=== PATIENT | female | born 1980 | race Caucasian/White ===

== ENCOUNTER 2016-09-14 07:19 | Outpatient (CLI) ==
[2016-09-14 07:57] LABS: BASOPHILS % (AUTO) 0.2 % (0.0-3.0); EOSINOPHILS % (AUTO) 0.1 % (0.0-7.0); HEMATOCRIT 37.3 % (37.0-47.0); IMMATURE GRANULOCYTE % (AUTO) 0.3 % (0.0-5.0); LYMPHOCYTES # (AUTO) 1.5 K/uL (0.60-3.4); LYMPHOCYTES % (AUTO) 13.1 (10.0-50.0); MEAN CORPUSCULAR HEMOGLOBIN 31.9 pg (27.0-31.0); MEAN CORPUSCULAR HGB CONC 34.9 (31.8-35.4); MEAN CORPUSCULAR VOLUME 91.4 fl (81.0-99.0); MONOCYTES # (AUTO) 0.8 K/uL (0.4-2.0); MONOCYTES % (AUTO) 7.2 (0-10); NEUTROPHILS # (AUTO) 9.3 K/ul (2.0-6.9); NEUTROPHILS % (AUTO) 79.1; PLATELET COUNT 313 10^3/uL (140-440); RED BLOOD COUNT 4.08 10^6/ul (4.20-5.40); WHITE BLOOD COUNT 11.72 K/ul (4.6-10.2)
--- NOTE | 2016-09-14 08:07 | DI ---
EXAM: CERVICAL SPINE, 3 VIEWS HISTORY: Neck pain. FINDINGS: Cervical spine open mouth, frontal and lateral views. Frontal view reveals no scoliosis . The lateral masses of C1-C2 are normally aligned. The odontoid process is grossly unremarkable. Lateral views demonstrate no spondylolisthesis, disc space abnormality or loss of vertebral body h eight. Facet joints are normally covered. No fractures are seen. Prevertebral soft tissues are wi thin normal limits. IMPRESSION: Unremarkable study.
--- NOTE | 2016-09-14 08:09 | DI ---
EXAM: RIGHT SHOULDER HISTORY: Right shoulder pain FINDINGS / IMPRESSION: Right shoulder three-view. General bone density is normal. There is no acute fracture or joint dislocation. Glenohumeral and acromioclavicular joints are normal. There is a corticated 0.5 cm bone density above the greater tuberosity of the proximal humerus which may represent a focus of dystrophic calcification. Soft tissues are otherwise unremarkable. If concern is persistent, consider correlation with MRI.
--- NOTE | 2016-09-14 08:10 | DI ---
EXAM: THORACIC SPINE HISTORY: Lower back pain FINDINGS: Thoracic spine three-view. Frontal view reveals no definite scoliosis. Bone density a ppears normal. Lateral views demonstrate normal vertebral body height, disc spaces and alignment. No acute fracture. IMPRESSION: Unremarkable study.
--- NOTE | 2016-09-14 08:11 | DI ---
EXAM: Lumbar spine three views HISTORY: Low back pain FINDINGS: Normal bone density. There is subtle scoliosis convex to the left centered at the upper lumbar level estimated at about 3-4 degrees. No fracture or spondylolisthesis. Normal vertebral isabel dy height. No notable degenerative disc or facet disease. Sacroiliac joints are within normal limi ts. IMPRESSION: Subtle scoliosis. Otherwise within normal limits.
[2016-09-14 08:42] LABS: ALBUMIN 3.8 g/dL (3.4-5.0); ALBUMIN/GLOBULIN RATIO 1.15; ANION GAP 13.9; BILIRUBIN,TOTAL 0.7 mg/dL (0.00-1.20); BUN/CREATININE RATIO 15.71; CALCIUM 9.1 mg/dL (8.2-10.2); CHOL/HDL RATIO 3.2 (4.5-5.5); CREATININE 0.7 mg/dL (0.60-1.30); POTASSIUM 3.9 mmol/L (3.5-5.10); TOTAL PROTEIN 7.1 g/dL (6.4-8.2)
== END 2016-09-14 07:20 | disposition home or self-care (01) ==
LOC: RAD 07:19
PROVIDERS: ATTEND Nurse Practitioner Family
DX: M54.9 Dorsalgia, unspecified (principal)
CPT/HCPCS: 36415; 80053; 80061; 82306; 84439; 84443; 85025; 86430

== ENCOUNTER 2016-09-17 10:59 | Outpatient (CLI) ==
[2016-09-17 15:40] LABS: ERYTHROCYTE SEDIMENTATION RATE 3 mm/hr (0-20); ESR INTERNAL QC INTERNAL QC VALID
[2016-09-18 08:53] LABS: C-REACTIVE PROTEIN < 0.3 mg/L (0.0-4.9)
== END 2016-09-17 11:00 | disposition home or self-care (01) ==
LOC: LAB 10:59
PROVIDERS: ATTEND Nurse Practitioner Family
DX: M54.5 Low back pain (principal); M54.6 Pain in thoracic spine; M54.2 Cervicalgia; D72.829 Elevated white blood cell count, unspecified; M54.12 Radiculopathy, cervical region; M54.16 Radiculopathy, lumbar region; R52 Pain, unspecified
CPT/HCPCS: 36415; 85651; 86140; 86664

== ENCOUNTER 2016-09-18 09:23 | Outpatient (CLI) ==
--- NOTE | 2016-09-18 10:24 | MAMMO ---
EXAM: Bilateral digital screening mammogram History: Screening Comparison: None available. Findings: MLO and CC views of bilateral breasts demonstrate heterogeneously dense breast parenchyma which can obscure small lesions. Benign calcifications seen within the right breast. There are no dominant masses, no suspicious microcalcifications and no architectural distortions Impression: Benign mammogram. Recommend followup routine screening mammography in 1 year. BIRADS 2
== END 2016-09-18 09:24 | disposition home or self-care (01) ==
LOC: RAD 09:23
PROVIDERS: ATTEND Nurse Practitioner Family
DX: Z12.31 Encounter for screening mammogram for malignant neoplasm of breast (principal); Z80.3 Family history of malignant neoplasm of breast

== ENCOUNTER 2016-09-20 10:04 | Outpatient (CLI) ==
--- NOTE | 2016-09-20 20:11 | MRI ---
EXAM: Cervical spine MRI without contrast. HISTORY: Cervical radiculopathy. COMPARISON: Cervical spine radiographs 09/14/2016. TECHNIQUE: Multiplanar, multisequence MR images were acquired of the cervical spine without contras t. FINDINGS: The right cerebellar tonsil is slightly larger than the left and both extend to the crani ocervical junction without ectopia. The cervical cord has normal signal intensity. There is minor mid cervical dextroscoliosis and straightening of the usual cervical lordosis. The cervical vertebr a are normal in height and intrinsic bone marrow signal. There are no paravertebral masses. A mode rate mucous retention cyst is present in the left maxillary sinus and a small mucous retention cyst in the right. Visualized lung apices are clear. C2-3: The intervertebral disc is normal. C3-4: There is a mild disc bulge and mild right uncovertebral hypertrophy with minor right foramina l stenosis. C4-5: There is a minor left posterior disc bulge. C5-6: The intervertebral disc is normal. C6-7: There is a minimal disc bulge. C7-T1: The intervertebral disc is normal. IMPRESSION: 1. Minor cervical degenerative spondylosis without spinal stenosis. 2. Mild disc bulge C3-4. 3. No cervical disc herniations or significant foraminal stenosis.
== END 2016-09-20 10:05 | disposition home or self-care (01) ==
LOC: RAD 10:04
PROVIDERS: ATTEND Nurse Practitioner Family
DX: M54.12 Radiculopathy, cervical region (principal)

== ENCOUNTER 2016-09-23 10:01 | Outpatient (CLI) ==
--- NOTE | 2016-09-23 14:09 | MRI ---
EXAM: MRI thoracic spine without IV contrast. DATE: 23 September 2016. HISTORY: Thoracic spine pain. TECHNIQUE: Sagittal and axial T2W and T1W sequences of the thoracic spine along with sagittal IR an d coronal T2W sequences were obtained using 1.2 Donna magnet. No IV contrast. COMPARISON: T-spine series 14 September 2016. MRI C-spine 20 September 2016. FINDINGS: No new cervical disc protrusions/cord compression, syrinx or myelomalacia is evident comp ared to 20 September 2016. For complete MRI C-spine details please see 20 September 2016 report. There are 12 thoracic vertebra with paired ribs. Minimal (2 degrees) rightward curvature of the tho racic spine may be positioning artifact. No acute T-spine fracture, subluxation, osseous malignancy , or jumped facet is evident. Thoracic vertebra are normal in height. A T2W/T1W/IR bright, 6 mm fo cus in the right posterolateral T9 vertebral body is likely an atypical hemangioma. Bone marrow sig nal is normal. Disc desiccation without significant disc space narrowing is evident at T4-5 and T6- 7. Thoracic intervertebral discs are normal in height. Conus medullaris terminates at T12-L1. No c ord edema, syrinx, myelomalacia, or neoplasm is identified. Anterior midline thyroid gland reveals a 4.6 x 2.7 mm T2W bright, T1W slightly dark focus. Thyroid gland is otherwise unremarkable. Trachea, mainstem bronchi, thoracic esophagus, and thoracic aorta are normal. No mediastinal lymphadenopathy, hilar lymphadenopathy, pneumonia, lung mass, or pleural effusion is detected. No rib fracture, rib lesion, paraspinal mass, or chest wall mass is identifi ed. Visible portion of each shoulder is unremarkable. The visible portions of the liver, gallbladde r, spleen, adrenal glands and right kidney reveal no distinct abnormality. A T2W bright, T1W interme diate signal, 3 mm focus in the anterior cortex upper pole left kidney is likely a benign cyst. Segmental analysis: T1-2: Normal. T2-3: Normal. T3-4: Normal. T4-5: Midline disc protrusion ( 1 x 3 mm) touches the cord anteriorly. Canal is 11 mm AP. Each fo ramen is patent. T5-6: Normal. T6-7: Midline disc protrusion (2.6 mm AP x 4.7 mm transverse) touches the cord anteriorly. Small a mount of dorsal epidural fat is noted. Thecal sac is 8.2 mm AP. Each foramen is patent. T7-8: Normal. T8-9: Normal. T9-10: Normal. T10-11: Normal. T11-12: Normal. T12-L1: Normal. IMPRESSIONS: 1. Thoracic spine minor DDD. Mild cord flattening and mild central stenosis at T6-7. No syrinx or myelomalacia. 2. No thoracic spine foraminal stenosis. 3. Benign atypical hemangioma in the T9 body. 4. Left kidney tiny cortical cyst - likely benign. 5. Small thyroid isthmus nodule (4.6 x 2.7 mm) - statistically likely to be a cyst.
== END 2016-09-23 10:02 | disposition home or self-care (01) ==
LOC: RAD 10:01
PROVIDERS: ATTEND Nurse Practitioner Family
DX: M54.6 Pain in thoracic spine (principal)

== ENCOUNTER 2016-09-24 10:00 | Outpatient (CLI) ==
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
== END 2016-09-24 10:01 | disposition home or self-care (01) ==
LOC: RAD 10:00
PROVIDERS: ATTEND Nurse Practitioner Family
DX: M54.5 Low back pain (principal)

== ENCOUNTER 2016-09-26 08:05 | Outpatient (CLI) ==
--- NOTE | 2016-09-26 08:46 | US ---
EXAM: Renal so HISTORY: Cyst of kidney, acquired COMPARISON: MRI spine 09/24/2016 TECHNIQUE: Renal ultrasound was FINDINGS: Right kidney measures 4.0 x 4.9 x 12.2 cm. Left kidney measures 4.7 x 4.1 x 10.0 cm. Re nal cortical echogenicity is normal. No hydronephrosis or renal calculus large enough to cause acou stic shadowing. No renal mass identified. The small left renal cyst demonstrated on MRI not visual ized sonographically. The bladder is only minimally distended and poorly evaluated, grossly unremar kable IMPRESSION: Sonographically normal kidneys. The small left renal cyst demonstrated on MRI is not v isualized sonographically.
== END 2016-09-26 08:06 | disposition home or self-care (01) ==
LOC: RAD 08:05
PROVIDERS: ATTEND Nurse Practitioner Family
DX: N28.1 Cyst of kidney, acquired (principal)
CPT/HCPCS: 76770

== ENCOUNTER 2017-01-31 11:43 | Outpatient (CLI) ==
[2017-01-31 13:06] LABS: BASOPHILS # (AUTO) 0.1 K/uL (0-0.2); BASOPHILS % (AUTO) 0.7 % (0.0-3.0); EOSINOPHILS # (AUTO) 0.2 K/ul (0.0-0.7); EOSINOPHILS % (AUTO) 2.8 % (0.0-7.0); HEMATOCRIT 40.2 % (37.0-47.0); HEMOGLOBIN 13.5 g/dl (12.0-16.0); IMMATURE GRANULOCYTE % (AUTO) 0.3 % (0.0-5.0); LYMPHOCYTES % (AUTO) 27.7 (10.0-50.0); MEAN CORPUSCULAR HEMOGLOBIN 31.4 pg (27.0-31.0); MEAN CORPUSCULAR HGB CONC 33.6 (31.8-35.4); MEAN CORPUSCULAR VOLUME 93.5 fl (81.0-99.0); MONOCYTES # (AUTO) 0.7 K/uL (0.4-2.0); NEUTROPHILS # (AUTO) 4.1 K/ul (2.0-6.9); NEUTROPHILS % (AUTO) 58.5; PLATELET COUNT 282 10^3/uL (140-440); WHITE BLOOD COUNT 7.08 K/ul (4.6-10.2)
[2017-01-31 13:26] LABS: ALBUMIN 3.9 g/dL (3.4-5.0); ALBUMIN/GLOBULIN RATIO 1.26; BILIRUBIN,TOTAL 0.15 mg/dL (0.00-1.20); BUN/CREATININE RATIO 22.72; CALCIUM 9.5 mg/dL (8.2-10.2); CREATININE 0.66 mg/dL (0.60-1.30)
== END 2017-01-31 11:44 | disposition home or self-care (01) ==
LOC: LAB 11:43
PROVIDERS: ATTEND Nurse Practitioner Family
DX: B27.90 Infectious mononucleosis, unspecified without complication (principal); M50.30 Other cervical disc degeneration, unspecified cervical region; M51.36 Other intervertebral disc degeneration, lumbar region
CPT/HCPCS: 36415; 80053; 80061; 85025

== ENCOUNTER 2017-10-14 22:15 | Emergency (ER) ==
[2017-10-14 22:25] VITALS: BP 146/100; TEMP 98.8
[2017-10-14] MEDS ORDERED: ZOFRAN 4 MG/2 ML IM STA (23:13)
[2017-10-14] MEDS ORDERED: DEMEROL 25 MG/ML VIAL IM STA (23:13)
--- NOTE | 2017-10-14 23:21 | ED.PDOC ---
General ED Provider: Dr. SHADY FLOR Chief Complaint: Back Pain Stated Complaint: Sudden onset of the left flank abdomina pain , sharp type,. nausea no vomiting Time Seen by Physician: 23:20 Mode of Arrival: Walk-In Information Source: Patient Primary Care Provider: SHADY FLOR-[facility] Nursing and Triage Documentation Reviewed and Agree: Yes Reviewed sepsis parameters & appropriate labs ordered?: No System Inflammatory Response Syndrome: Not Applicable Sepsis Protocol: For patient's 13 years and over: Temp is 96.8 and below OR 101 and greater Pulse >90 BPM Resp >20/minute Acutely Altered Mental Status Are patient's symptoms suggestive of a new infection, such as: -Pneumonia -Skin, Soft Tissue -Endocarditis -UTI -Bone, Joint Infection -Implantable Device -Acute Abdominal Infection -Wound Infection -Meningitis -Blood Stream Catheter Infection -Unknown GI Complaint Exam - Abdominal Pain Complaint/Exam Onset: Sudden Symptoms Are: Still present Timing: Constant Initial Severity: Severe Current Severity: Severe Location of Pain: LLQ, Suprapubic Radiates To: Reports: Flank Character: Reports: Sharp Aggravating: Reports: Movement Alleviating: Reports: None Associated Signs and Symptoms: Reports: Nausea. Denies: Diaphoresis, Fever, Cough, Chest pain, Dizziness, Back pain, Constipation, Blood in stool, Dysuria, Urinary frequency, Decreased urine output, Decreased appetite, Vaginal bleeding , Vaginal discharge, Vomiting, Diarrhea, Sore throat, Decreased activity AAA Risk Factors: Reports: None Cardiac Risk Factors: Reports: None Ectopic Risk Factors: Reports: None Ovarian Torsion Risk Factors: Reports: None Surgical Obstruction Risk Factors: Reports: None Related Surgical History: Reports: None Patient Rh Status: Unknown Abdominal Findings: Present: CVA Tenderness. Absent: Pulsatile mass, Abdominal distention, Unequal femoral pulses, Rebound tenderness Differential Diagnoses: Renal Colic, Ureteral Stone, UTI Review of Systems - Review Of Systems Constitutional: Reports: Malaise, Weakness Eyes: Reports: No symptoms Ears, Nose, Mouth, Throat: Reports: No symptoms Respiratory: Reports: No symptoms Cardiac: Reports: No symptoms GI: Reports: Abdominal pain, Nausea : Reports: Burning, Dysuria Musculoskeletal: Reports: No symptoms Skin: Reports: No symptoms Neurological: Reports: No symptoms Endocrine: Reports: No symptoms Hematologic/Lymphatic: Reports: No symptoms All Other Systems: Reviewed and Negative Past Medical History - Past Medical History Previously Healthy: Yes Endocrine: Reports: None Cardiovascular: Reports: None Respiratory: Reports: None Hematological: Reports: None Gastrointestinal: Reports: None Genitourinary: Reports: None Neuro/Psych: Reports: None Musculoskeletal: Reports: None Cancer: Reports: None Last Menstrual Period: UNKNOWN - Surgical History General Surgical History: Reports: Hysterectomy - Family History Family History: Reports: None - Social History Smoking Status: Former smoker Hx Substance Use: No Alcohol Screening: None - Immunizations Tetanus Shot up to Date: Yes Physical Exam - Physical Exam Appearance: Ill-appearing, Thin Pain Distress: Moderate Eyes: CALI, EOMI, Conjunctiva clear ENT: Ears normal, Nose normal, Oropharynx normal Respiratory: Airway patent, Breath sounds clear, Breath sounds equal, Respirations nonlabored Cardiovascular: RRR, Pulses normal, No rub, No murmur GI/: Tender Musculoskeletal: Normal strength, ROM intact, No edema, No calf tenderness Skin: Warm, Dry, Normal color Neurological: Sensation intact, Motor intact, Reflexes intact, Cranial nerves intact, Alert, Oriented Psychiatric: Affect appropriate, Mood appropriate Interpretation - Radiology Interpretation Radiology Interpretation By: Radiologist Radiology Results: Positive (2 mm stone,) Exam Interpreted: CT Scan Critical Care Note - Critical Care Note Total Time (mins): 30 Course - Course Hematology/Chemistry: 10/15/17 00:00 Orders, Labs, Meds: Lab Review 10/14/17 10/14/17 10/15/17 22:35 23:30 00:00 WBC 17.80 H RBC 3.88 L Hgb 12.3 Hct 35.6 L MCV 91.8 MCH 31.7 H MCHC 34.6 RDW Coeff of Kim 12.2 Plt Count 329 Immature Gran % (Auto) 0.4 Neut % (Auto) 82.4 Lymph % (Auto) 9.5 L Ogle % (Auto) 7.2 Eos % (Auto) 0.2 Baso % (Auto) 0.3 Immature Gran # (Auto) 0.1 Neut # (Auto) 14.7 H Lymph # (Auto) 1.7 Ogle # (Auto) 1.3 Eos # (Auto) 0.0 Baso # (Auto) 0.1 Amylase 23 L Lipase 25 Urine Color Dark Urine Clarity Cloudy Urine pH 5.5 Ur Specific [place] >=1.030 Urine Protein 2+ Urine Glucose (UA) Negative Urine Ketones Trace Urine Blood 3+ Urine Nitrite Negative Urine Bilirubin Negative Urine Urobilinogen 0.2 Ur Leukocyte Esterase Negative Urine Microscopic RBC 50-100 Ur Squamous Epith Cells 0-2 Hyaline Casts 0-2 Orders Category Date Time Status AMYLASE Stat LAB 10/14/17 23:30 Completed CBC W/ AUTO DIFF Stat LAB 10/15/17 00:00 Completed CMP [COMPREHENSIVE METABOLIC PANEL] Stat LAB 10/15/17 00:00 Received LIPASE Stat LAB 10/14/17 23:30 Completed UA [URINALYSIS C & S IF INDICATED] Stat LAB 10/14/17 22:35 Completed Ketorolac Tromethamine [Toradol] MEDS 10/15/17 00:06 Discontinued 60 mg IM ONCE STA Meperidine HCl/Pf [Demerol 25 mg/ml Vial] MEDS 10/14/17 23:13 Discontinued 25 mg IM ONCE STA Ondansetron HCl/Pf [Zofran 4 mg/2 ml] MEDS 10/14/17 23:13 Discontinued 4 mg IM ONCE STA CT ABDOMEN/PELVIS WO CONTRAST Stat RADS 10/14/17 23:13 Completed Medications Discontinued Medications Generic Name Dose Route Start Last Admin Trade Name Essence PRN Reason Stop Dose Admin Ketorolac Tromethamine 60 mg 10/15/17 00:06 10/15/17 00:15 Toradol IM 10/15/17 00:07 60 mg ONCE STA Administration Meperidine HCl 25 mg 10/14/17 23:13 10/14/17 23:21 Demerol 25 Mg/Ml Vial IM 10/14/17 23:14 25 mg ONCE STA Administration Ondansetron HCl 4 mg 10/14/17 23:13 10/14/17 23:20 Zofran 4 Mg/2 Ml IM 10/14/17 23:14 4 mg ONCE STA Administration Vital Signs: Temp Pulse Resp BP Pulse Ox 10/14/17 22:17 98.8 F 93 H 24 146/100 H 98 Departure - Departure Time of Disposition: 00:20 Disposition: HOME SELF-CARE Discharge Problem: Renal colic on left side Instructions: Renal Colic (ED) Condition: Stable Pt referred to PMD for follow-up: Yes IPMP verified?: No Additional Instructions: INCREASE HYDRATION F/U WITH [facility] IN 2-3 DAYS Prescriptions: Hydrocodone Bit/Acetaminophen [[place] 7.5-325] 1 each PO Q8H #10 tablet Tamsulosin HCl [Flomax] 0.4 mg PO DAILY #10 cap.er.24h Allergies/Adverse Reactions: Allergies No Known Allergies Allergy (Verified 10/14/17 22:26) Home Medications: Ambulatory Orders Diphenhydramine HCl [Benadryl] 50 mg PO BEDTIME 10/14/17 Hydrocodone Bit/Acetaminophen [[place] 7.5-325] 1 each PO Q8H #10 tablet 10/15/17 Tamsulosin HCl [Flomax] 0.4 mg PO DAILY #10 cap.er.24h 10/15/17 Disposition Discussed With: Patient, Family
[2017-10-15] MEDS ORDERED: TORADOL IM STA (00:06)
--- NOTE | 2017-10-15 00:15 | CT ---
EXAM: CT scan abdomen pelvis without contrast HISTORY: Left flank pain COMPARISON: None. FINDINGS: Contiguous axial images obtained through the abdomen pelvis without contrast utilizing 3-m m collimation. Sagittal and coronal reconstructions were imaged and reviewed.. The visualized lung bases are clear. Gallbladder is fluid filled without cholelithiasis. The liver, pancreas, spleen an d adrenal glands have normal unenhanced CT appearance. The the abdominal aorta is normal in course a nd caliber. The right kidney is morphologically normal. Several punctate nonobstructive calculi are seen within the left kidney. There is left-sided hydronephrosis and hydroureter secondary to a 2 mm calculus within the proximal left ureter. There is no evidence of free fluid.. Bone windows reveal s no evidence of lytic or blastic lesions. IMPRESSION: Left-sided hydronephrosis and hydroureter secondary to a 2 mm calculus within the proximal ureter. T here is nonobstructive left-sided nephrolithiasis. Small umbilical hernia containing only fat.
[2017-10-15] MEDS ORDERED: FLOMAX PO STA (00:18)
== END 2017-10-15 00:46 | disposition home or self-care (01) ==
LOC: ED 22:15
DX: N23 Unspecified renal colic (principal)
CPT/HCPCS: 36415; 80053; 81001; 82150; 83690; 85025; 96372; 99283

== ENCOUNTER 2017-10-22 16:42 | Outpatient (CLI) | END 2017-10-22 16:43 | disposition home or self-care (01) | LOC: LAB 16:42 | PROVIDERS: ATTEND Nurse Practitioner Family | DX: N20.0 Calculus of kidney (principal); N30.01 Acute cystitis with hematuria; M51.24 Other intervertebral disc displacement, thoracic region | CPT/HCPCS: 36415; 80048; 81001; 85025; 87086 ==

== ENCOUNTER 2018-03-19 11:27 | Outpatient (CLI) | END 2018-03-19 11:28 | disposition home or self-care (01) | LOC: FCC-LAB 11:27 | PROVIDERS: ATTEND Family Medicine | DX: R25.2 Cramp and spasm (principal); R79.89 Other specified abnormal findings of blood chemistry; M54.6 Pain in thoracic spine | CPT/HCPCS: 36415; 80053; 82306; 83735; 85025 ==

== ENCOUNTER 2018-05-16 16:28 | Emergency (ER) ==
[2018-05-16 16:32] VITALS: BP 118/82; TEMP 97.7; BMI 25.0
[2018-05-16] MEDS ORDERED: LIDOCAINE HCL 1% SDV ONE (18:23)
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
[2018-05-16] MEDS ORDERED: BOOSTRIX IM ONE (18:55)
[2018-05-16] MEDS ORDERED: LIDOCAINE HCL 1% SDV SUBCUT STA (18:55)
== END 2018-05-16 19:18 | disposition home or self-care (01) ==
LOC: ED 16:28
DX: S11.81XA Laceration without foreign body of other specified part of neck, initial encounter (principal); X99.1XXA Assault by knife, initial encounter
CPT/HCPCS: 90471; 90715; 99283

== ENCOUNTER 2018-08-06 14:10 | Outpatient (CLI) | END 2018-08-06 14:11 | disposition home or self-care (01) | LOC: RHC-LAB 14:10 | PROVIDERS: ATTEND Family Medicine | DX: R79.89 Other specified abnormal findings of blood chemistry (principal) | CPT/HCPCS: 36415; 82306 ==

== ENCOUNTER 2019-02-05 11:06 | Outpatient (CLI) ==
--- NOTE | 2019-02-05 12:04 | DI ---
EXAM: Right shoulder three views HISTORY: Shoulder pain. FINDINGS: Compared to 09/14/2016. Redemonstration of an osseous density situated superior to the gr eater tubercle of the proximal humerus measuring about 4 x 6 mm. This appears slightly larger than p revious and may represent regional dystrophic calcification. The AC and glenohumeral joints proper w ithin normal limits. There is no acute fracture or dislocation. IMPRESSION: 1. Persistent calcific density above the greater tubercle of the humerus slightly enlarged since seymour or study of 09/14/2016. This could represent dystrophic calcification. Otherwise within normal limi ts. Consider correlation with MRI if indicated.
== END 2019-02-05 11:07 | disposition home or self-care (01) ==
LOC: RAD 11:06
PROVIDERS: ATTEND Family Medicine
DX: M25.511 Pain in right shoulder (principal)

== ENCOUNTER 2019-02-17 09:33 | Outpatient (CLI) ==
--- NOTE | 2019-02-17 14:32 | MRI ---
EXAM: MRI of the right shoulder without contrast COMPARISON: Right shoulder radiographs 02/05/2019. HISTORY: Right shoulder pain with decreased range of motion. No known injury. Abnormal radiographs . TECHNIQUE: Multiplanar noncontrast MR images of the right shoulder were acquired using a 1.2 Donna m [employer]. FINDINGS: There is moderately severe supraspinatus, infraspinatus and subscapularis tendinosis. The re is a focal 1.0 x 0.6 x 0.6 cm region of hypointense signal as susceptibility artifact along the an terior insertional fibers of the supraspinatus projecting into the overlying subacromial/subdeltoid b ursa which corresponds to the abnormality. Previous radiographs. This is most compatible with calci fic tendonitis/bursitis with trace fluid in the overlying subacromial/subdeltoid bursa. Mild bursal surface fraying of the supraspinatus at/proximal to that level without a full-thickness rotator cuff defect. Limited assessment of the glenoid labrum on this non arthrographic study. No paralabral cyst. The g lenohumeral joint space is preserved without evidence of an acute fracture or dislocation. The long head of the biceps is located within the bicipital groove and is intact. Mild capsular hypertrophy at the acromioclavicular joint. Type 1 acromion without evidence of an os acromiale or abnormal widening of the acromioclavicular joint space. No soft tissue mass identified. IMPRESSION: 1. Calcific tendonitis/bursitis at the level of the insertional fibers of the supraspinatus with tra ce fluid in the overlying subacromial/subdeltoid bursa. Moderate rotator cuff tendinosis with some b ursal surface fraying of the supraspinatus. No full-thickness rotator cuff tear or tendon retraction . 2. Mild degenerative changes of the acromioclavicular joint. 3. No acute osseous abnormality.
== END 2019-02-17 09:34 | disposition home or self-care (01) ==
LOC: RAD 09:33
PROVIDERS: ATTEND Family Medicine
DX: R93.7 Abnormal findings on diagnostic imaging of other parts of musculoskeletal system (principal)